=== PATIENT | female | born 1990 | race Caucasian/White ===

== ENCOUNTER 2023-07-09 12:54 | Emergency (ER) | payer MEDICAID, SELFPAY ==
[2023-07-09 13:02] VITALS: BP 143/90; PULSE 106; RESP 20; TEMP 36; O2SAT 100
--- NOTE | 2023-07-09 13:42 | ED.GENADULT ---
HPI - General Adult General Chief complaint: Upper Respiratory Infection Stated complaint: severe headache Time Seen by Provider: 07/09/23 13:42 Source: patient, RN notes reviewed and old records reviewed Mode of arrival: ambulatory Limitations: no limitations History of Present Illness HPI narrative: 32-year-old female presents to the [facility] with 4 day history of generalized neck pain radiating up into her head. States her headache has been getting worse. Has had intermittent blurry vision. Has taken ibuprofen. Patient describes it as 1 of the worst headaches of her life. States it feels like the headache she had after giving and having an epidural when she needed a blood patch. No neuro deficits noted. No generalized weakness. States she has had some clear nasal drainage and an intermittent cough. States that it hurts to swallow but denies any sore throat. Reports having chills. Pain with any movement of the head. Onset (ago): day(s) (4) Treatments prior to arrival: NSAID (Ibuprofen) Related Data Allergies Allergy/AdvReac Type Severity Reaction Status Date / Time amoxicillin Allergy Swelling Verified 07/09/23 13:44 doxycycline Allergy Swelling Verified 07/09/23 13:44 Penicillins Allergy Swelling Verified 07/09/23 13:44 sulfamethoxazole Allergy Hives Verified 07/09/23 13:44 [From Bactrim] trimethoprim [From Bactrim] Allergy Hives Verified 07/09/23 13:44 Review of Systems Review of Systems: All systems reviewed & are unremarkable except as noted in HPI and below Constitutional: Constitutional: Reports as per HPI, Reports body ache(s), Reports chills and Reports headache(s) Eyes: Eyes: Reports no additional eye complaints ENT: Reports as per HPI Cardiovascular: Cardiovascular: Reports no additional cardiovascular complaints, Denies chest pain and Denies dyspnea Respiratory: Respiratory: Reports as per HPI, Denies chest congestion, Reports cough and Denies dyspnea Gastrointestinal: Gastrointestinal: Reports no additional gastrointestinal complaints, Denies abdominal pain, Denies nausea and Denies vomiting Musculoskeletal: Musculoskeletal: Reports as per HPI and Denies numbness Integumentary/Breasts: Skin/Breast: Reports system reviewed and no additional complaints, except as docu Neurologic: Reports as per HPI and Reports headache(s) Psychiatric: Psychiatric: Reports no additional psychiatric complaints Allergic/Immunologic: Allergic/Immunologic: Reports no additional allergic/immunologic complaints PMFSH Past Medical History Medical History Hypertension Social History Social History (Updated 07/09/23 @ 14:27 by Zuly Kim APRN) Living arrangements: with family Gender identity (if verbalized by the patient): Female Comments At the time of my signature, I reviewed and agree with the nursing past medical, surgical, social, and family history. There is no relevant family history pertinent to the patient complaint. Exam Const: General: cooperative, well developed, alert, anxious, uncomfortable, well nourished and obese Nutritional Appearance: well nourished and obese Orientation/consciousness: patient oriented x3 Limitations: no limitations HENMT: Head: normal to inspection Ears: hearing grossly normal bilaterally, external ears normal, TM's normal bilaterally, EAC's normal, mastoids normal and no periauricular adenopathy Face/Nose/Sinus: Normal external nose present, Normal nares present, Normal nasal mucous membranes and turbinates present, normal facial exam and face symmetric Face and sinus: normal facial exam and face symmetric Mouth: Yes Normal oral and palatal mucosa present, Yes lip normal, Yes tongue normal and Yes moist mucous membranes Teeth and gingiva: caries and poor dentition (Multiple caries and missing teeth) Throat: posterior oropharynx normal, uvula midline and no uvular edema Eyes: General: appearance n
== END 2023-07-09 14:00 | disposition short-term general hospital (02) ==
PROVIDERS: Emergency Provider Nurse Practitioner
DX: M54.2 Cervicalgia (principal); R51.9 Headache, unspecified; Z20.822 Contact with and (suspected) exposure to COVID-19; I10 Essential (primary) hypertension
CPT/HCPCS: 87081; 87426; 87804; 87880; 99203; G0463

== ENCOUNTER 2023-08-26 22:04 | Emergency (ER) | payer OTHER, MEDICAID, SELFPAY ==
--- NOTE | ~2023-08-26 | XR_ITS ---
EXAMINATION: XR ribs RT 2V w CXR 2V Exam Date/Time: 08/26/2023 23:32 CDT HISTORY: right posterior rib pain Comparison: None available. RESULT: Lines, tubes, and devices: Mediastinal surgical clips. Lungs and pleura: Clear. Cardiothymic silhouette: Normal cardiothymic silhouette. 5.6 cm hemispherical soft tissue density ov er the right hemidiaphragm. Other: No upper abdominal finding. 2.8 cm gap in the right posterior seventh rib, with smooth sclero tic margins. No rib fracture detected. IMPRESSION: No acute cardiopulmonary process. No definite acute rib fracture detected. 2.8 cm gap in the right posterior seventh rib. The appearance is most likely related to chronic or po stsurgical/procedural change. 5.6 cm hemispherical soft tissue density over the right hemidiaphragm. Possible diaphragmatic hernia. Correlate with history prior trauma, surgical/procedural history, and consider CT of the chest for fu rther evaluation if no consistent history is revealed. Reviewed, dictated and finalized at location K. IMPRESSION: No acute cardiopulmonary process. No definite acute rib fracture detected. 2.8 cm gap in the right posterior seventh rib. The appearance is most likely re lated to chronic or postsurgical/procedural change. 5.6 cm hemispherical soft tissue density over the right hemidiaphragm. Possible diaphragmatic hernia. Correlate with history prior trauma, surgical/procedural history, and consider CT of the chest for further evaluation if no consistent history is revealed.
[2023-08-26 22:05] VITALS: BP 146/96; PULSE 103; RESP 16; TEMP 36.2; O2SAT 100
--- NOTE | 2023-08-26 23:25 | ED.BACK ---
HPI - Back Pain/Injury General Chief Complaint: Back Pain/Injury Stated Complaint: rt shoulder pain Time Seen by Provider: 08/26/23 22:48 Source: patient Mode of arrival: ambulatory Limitations: no limitations History of Present Illness HPI Narrative: This is a 32 year old female that presents to the ER for right sided mid back pain. Reports started after dropping off a package tonight. Pain is worse with movement and relieved with rest. She has not taken anything for pain. Denies weakness or numbness. Related Data Allergies Allergy/AdvReac Type Severity Reaction Status Date / Time amoxicillin Allergy Swelling Verified 07/09/23 13:44 doxycycline Allergy Swelling Verified 07/09/23 13:44 Penicillins Allergy Swelling Verified 07/09/23 13:44 sulfamethoxazole Allergy Hives Verified 07/09/23 13:44 [From Bactrim] trimethoprim [From Bactrim] Allergy Hives Verified 07/09/23 13:44 Review of Systems Review of Systems: CONSTITUTIONAL: Denies fever MUSCULOSKELETAL: Reports back pain, and myalgia. NEUROLOGIC: Denies numbness, or weakness. All systems reviewed & are unremarkable except as noted in HPI and below PMFSH Past Medical History Medical History Hypertension Social History Social History (Updated 07/09/23 @ 14:27 by Zuly Kim APRN) Living arrangements: with family Gender identity (if verbalized by the patient): Female Exam Narrative: GENERAL: Well-appearing, well-nourished, and in no acute distress. HEAD: Normocephalic, atraumatic. EYES: EOMI. CHEST: Clear to auscultation. No respiratory distress. No wheezes rales or rhonchi HEART: Regular rate and rhythm. No murmur heard. Normal peripheral pulses. BACK: Tender to palpation of right latissimus dorsi muscle EXTREMITIES: Normal range of motion. No edema. SKIN: Warm, dry, no rash. NEURO: No focal deficits. Alert and oriented x3. PSYCH: Normal mood and affect Course Course Emergency Course: Patient resting. Updated on her workup. Agrees with plan of care Vital Signs Vital signs: Vital Signs Temperature 97.1 F L 08/26/23 22:05 Pulse Rate 103 H 08/26/23 22:05 Respiratory Rate 16 08/26/23 22:05 Blood Pressure 146/96 H 08/26/23 22:05 Pulse Oximetry 100 08/26/23 22:05 Oxygen Delivery Room Air 08/26/23 22:05 Temperature 97.1 F L 08/26/23 22:05 Pulse Rate 91 08/27/23 00:17 Respiratory Rate 15 08/27/23 00:17 Blood Pressure 159/100 H 08/27/23 00:17 Pulse Oximetry 100 08/27/23 00:17 Oxygen Delivery Room Air 08/26/23 22:05 MDM - Back Pain/Injury MDM Narrative Medical decision making narrative: Patient presents to the emergency department after dropping off a package for work today feeling pain to the right back. Exam and symptoms consistent with likely muscle strain. Chest x-ray without acute cardiopulmonary abnormality. Patient has had a procedure on the right lung before, explaining other findings on her imaging. Patient resting. Updated on her workup. Agrees with plan of care. She was instructed on further care of muscle strain. She is to follow up with primary provider. She was given warnings to return to the ER Differential Diagnosis Differential diagnosis: Likely other (muscle strain, rib fracture) Imaging Data Radiologist's impression: ITS Impressions Ribs w/Chest X-Ray 08/27/23 00:00 IMPRESSION: No acute cardiopulmonary process. No definite acute rib fracture detected. 2.8 cm gap in the right posterior seventh rib. The appearance is most likely related to chronic or postsurgical/procedural change. 5.6 cm hemispherical soft tissue density over the right hemidiaphragm. Possible diaphragmatic hernia. Correlate with history prior trauma, surgical/procedural history, and consider CT of the chest for further evaluation if no consistent history is revealed. Critical Care Time Critical Care Time Critical C
[2023-08-26] MEDS: KETOROLAC 30 MG/ML VIAL (*BKC) IM (23:43)
[2023-08-26] MEDS: ACETAMINOPHEN 500 MG TABLET 1000 MG PO (23:43)
[2023-08-27 00:17] VITALS: BP 159/100; PULSE 91; RESP 15; O2SAT 100
== END 2023-08-27 01:23 | disposition home or self-care (01) ==
PROVIDERS: Emergency Provider Physician Assistant
DX: S29.012A Strain of muscle and tendon of back wall of thorax, initial encounter (principal); I10 Essential (primary) hypertension; X58.XXXA Exposure to other specified factors, initial encounter
CPT/HCPCS: 71046; 71100; 96372; 99283; A9270; J1885

== ENCOUNTER 2023-09-20 16:34 | Emergency (ER) | payer MEDICAID, SELFPAY ==
[2023-09-20 17:35] VITALS: BP 157/97; PULSE 86; RESP 20; TEMP 36.2; O2SAT 99
--- NOTE | 2023-09-20 17:36 | ED.RECABL ---
HPI - Recheck/Abnormal Lab/Rx General Chief Complaint: Recheck/Abnormal Lab/Rx Stated Complaint: requesting blood test Time Seen by Provider: 09/20/23 17:37 Focused HPI: this is a 32-year-old female that presents to the emergency department for a test. Reports she had a positive home test. Would like blood work to confirm. She does not currently have an OB. Her last menstrual period was 08/11/2023. denies pelvic cramping or vaginal bleeding. GENERAL: Well-appearing, well-nourished, and in no acute distress. HEAD: Normocephalic, atraumatic. CHEST: Clear to auscultation. ?No respiratory distress. HEART: Regular rate and rhythm.? NEURO: ?Alert and oriented x3. Patient screened in triage and initial orders placed.? ?Additional care and disposition to be based upon?diagnostic testing and treatment. Related Data Allergies Allergy/AdvReac Type Severity Reaction Status Date / Time amoxicillin Allergy Swelling Verified 09/20/23 17:38 doxycycline Allergy Swelling Verified 09/20/23 17:38 Penicillins Allergy Swelling Verified 09/20/23 17:38 sulfamethoxazole Allergy Hives Verified 09/20/23 17:38 [From Bactrim] trimethoprim [From Bactrim] Allergy Hives Verified 09/20/23 17:38 Review of Systems Review of Systems: CONSTITUTIONAL: Denies fever GASTROINTESTINAL: Denies abdominal pain All systems reviewed & are unremarkable except as noted in HPI and below PMFSH Past Medical History Medical History Hypertension Social History Social History (Updated 07/09/23 @ 14:27 by Zuly Kim APRN) Living arrangements: with family Gender identity (if verbalized by the patient): Female Exam Narrative: GENERAL: Well-appearing, well-nourished, and in no acute distress. HEAD: Normocephalic, atraumatic. EYES: EOMI. CHEST: No respiratory distress. HEART: Regular rate EXTREMITIES: Normal range of motion. No edema. SKIN: Warm, dry, no rash. NEURO: No focal deficits. Alert and oriented x3. PSYCH: Normal mood and affect Course Course Emergency Course: patient updated on her workup Vital Signs Vital signs: Vital Signs Temperature 97.1 F L 09/20/23 17:35 Pulse Rate 86 09/20/23 17:35 Respiratory Rate 20 09/20/23 17:35 Blood Pressure 157/97 H 09/20/23 17:35 Pulse Oximetry 99 09/20/23 17:35 Oxygen Delivery Room Air 09/20/23 17:35 Temperature 98.0 F 09/20/23 21:10 Pulse Rate 86 09/20/23 21:10 Respiratory Rate 20 09/20/23 21:10 Blood Pressure 150/94 H 09/20/23 21:10 Pulse Oximetry 95 09/20/23 21:10 Oxygen Delivery Room Air 09/20/23 17:35 MDM - Recheck/Abnormal Lab/Rx MDM Narrative Medical decision making narrative: patient presents to the emergency department for test. No other concerns or complaints. test was negative. Instructed to follow-up with PCP as needed Lab Data Attestation: I reviewed the patient's lab results. Labs: Lab Results 09/20/23 Range/Units 20:18 Beta HCG, Quant < 2.39 mIU/ML Critical Care Time Critical Care Time Critical Care Time: No Discharge Plan Discharge Clinical Impression: Negative test Patient Disposition: Home, Self-Care Condition: Stable Additional Instructions: Return to the emergency department if you experience fever, chest pain, shortness of breath, abdominal pain with nausea and vomiting, weakness, numbness, or any other symptoms that are concerning to you. Follow up with primary care doctor as needed Prescriptions: No Action cyclobenzaprine 10 mg tablet 10 mg PO TID PRN (Reason: muscle spasm) Qty: 14 0RF Follow-up/Referrals: PHYSICIAN,MEDICAL INFORMATION SPECIALIST [Primary Care Provider] -
[2023-09-20 19:23] VITALS: BP 154/100; PULSE 89; RESP 20; TEMP 37; O2SAT 98
[2023-09-20 21:10] VITALS: BP 150/94; PULSE 86; RESP 20; TEMP 36.7; O2SAT 95
[2023-09-20 21:20] LABS: Beta HCG Quantitative < 2.39 mIU/ML
== END 2023-09-20 21:30 | disposition home or self-care (01) ==
PROVIDERS: Emergency Provider Physician Assistant
DX: Z32.02 Encounter for pregnancy test, result negative (principal); I10 Essential (primary) hypertension
CPT/HCPCS: 36415; 84702; 99283

== ENCOUNTER 2024-01-22 03:16 | Emergency (ER) | payer SELFPAY ==
[2024-01-22 03:21] VITALS: PULSE 88; RESP 15; TEMP 36.5; O2SAT 99
--- NOTE | 2024-01-22 03:25 | ED.GENADULT ---
HPI - General Adult General Chief complaint: Dental/Oral Stated complaint: R sided toothache Time Seen by Provider: 01/22/24 03:21 History of Present Illness HPI narrative: Patient is a 33-year-old female who presents emergency department with chief complaint of dental pain. Patient reports that she started having pain in her right upper tooth reports that she does not seen a dentist yet and reports that she is not having any fever trismus. Related Data Allergies Allergy/AdvReac Type Severity Reaction Status Date / Time amoxicillin Allergy Swelling Verified 01/22/24 03:17 doxycycline Allergy Swelling Verified 01/22/24 03:17 Penicillins Allergy Swelling Verified 01/22/24 03:17 sulfamethoxazole Allergy Hives Verified 01/22/24 03:17 [From Bactrim] trimethoprim [From Bactrim] Allergy Hives Verified 01/22/24 03:17 Review of Systems Review of Systems: A 10 system review of systems was completed on the patient and is negative except for what is stated in the HPI. Nursing and ancillary documentation was reviewed. PMFSH Past Medical History Medical History Hypertension Social History Social History Living arrangements: with family Gender identity (if verbalized by the patient): Female Exam Narrative: GENERAL: Well-appearing, well-nourished, and in no acute distress. HEAD: Normocephalic, atraumatic. EYES: PERRLA and EOMI. ENT: Nares clear, no rhinorrhea or epistaxis. Mucous membranes moist. Gross dental decay present no trismus no crepitance NECK: Supple. CHEST: Clear to auscultation. No respiratory distress. HEART: Regular rate and rhythm. No murmur heard. Normal peripheral pulses. ABDOMEN: Soft, nontender, nondistended, normal active bowel sounds. EXTREMITIES: Normal range of motion. No edema. SKIN: Warm, dry, no rash. NEURO: No focal deficits. Alert and oriented x3. PSYCH: Normal mood and affect. Medical Decision Making MDM Narrative Medical decision making narrative: Differential diagnosis dental caries, dental abscess Patient be started on clindamycin as she is allergic to amoxicillin doxycycline sulfa Patient will be given a dose of [place] in the emergency depart Discharge Plan Discharge Clinical Impression: Dental caries, Toothache Patient Disposition: Home, Self-Care Condition: Stable Instructions: Antibiotic Form, Dental Abscess (ED), Toothache (ED) Additional Instructions: Please follow-up with a dentist as soon as possible Prescriptions: New clindamycin HCl 300 mg capsule 300 mg PO Q6H 10 Days Qty: 40 0RF No Action cyclobenzaprine 10 mg tablet 10 mg PO TID PRN (Reason: muscle spasm) Qty: 14 0RF Follow-up/Referrals: PHYSICIAN,LAUNDRY PRICING CLERK [Primary Care Provider] - Mabel De Los Santos DO [Physician] - Time of Disposition: 03:30
[2024-01-22] MEDS: HYDROcodone/acetaminophen (*CRX) 5-325 MG TABLET 1 TAB PO (03:32)
[2024-01-22] MEDS: CLINDAMYCIN HCL 150 MG CAP 300 MG PO (03:32)
[2024-01-22 03:46] VITALS: BP 130/83; PULSE 84; RESP 15; O2SAT 99
== END 2024-01-22 03:44 | disposition home or self-care (01) ==
LOC: ANHED 03:35
PROVIDERS: Emergency Provider Emergency Medicine
DX: K02.9 Dental caries, unspecified (principal); I10 Essential (primary) hypertension
CPT/HCPCS: 99283; A9270

== ENCOUNTER 2024-03-30 10:22 | Emergency (ER) | payer BC, SELFPAY ==
--- NOTE | 2024-03-30 12:13 | ED.URI ---
HPI - URI/Sore Throat General Chief Complaint: Upper Respiratory Infection Stated Complaint: fever,bodyaches.cough Time Seen by Provider: 03/30/24 12:13 Source: patient, RN notes reviewed and old records reviewed Mode of arrival: ambulatory Limitations: no limitations History of Present Illness HPI Narrative: Patient presents with complaints of flu-like symptoms that began yesterday. She is accompanied by her child who is also experiencing the same symptoms. She reports that she has been taking Tylenol and ibuprofen for her symptoms with moderate relief. She denies any injury or trauma. She is not in any distress. She voices no other concerns or complaints today. Related Data Allergies Allergy/AdvReac Type Severity Reaction Status Date / Time amoxicillin Allergy Swelling Verified 03/30/24 12:04 doxycycline Allergy Swelling Verified 03/30/24 12:04 Penicillins Allergy Swelling Verified 03/30/24 12:04 sulfamethoxazole (From Allergy Hives Verified 03/30/24 12:04 Bactrim) trimethoprim (From Bactrim) Allergy Hives Verified 03/30/24 12:04 Review of Systems Review of Systems: All systems reviewed & are unremarkable except as noted in HPI and below Constitutional: Constitutional: Reports no additional constitutional complaints, Reports body ache(s), Reports chills, Reports fever(s), Reports headache(s) and Reports lethargy ENT: Reports system reviewed and no additional complaints, except as documented, Reports nasal congestion and Reports nasal discharge Cardiovascular: Cardiovascular: Reports no additional cardiovascular complaints Respiratory: Respiratory: Reports no additional respiratory complaints Gastrointestinal: Gastrointestinal: Reports no additional gastrointestinal complaints PMF Past Medical History Medical History Hypertension Social History Social History Living arrangements: with family Gender identity (if verbalized by the patient): Female Comments At the time of my signature, I reviewed and agree with the nursing past medical, surgical, social, and family history. There is no relevant family history pertinent to the patient complaint. Exam Const: General: cooperative, no acute distress, alert and awake Orientation/consciousness: oriented to person, oriented to place and oriented to time HENMT: Head: normal to inspection Ears: TM's normal bilaterally Mouth: Yes moist mucous membranes Throat: posterior oropharynx normal Resp: Effort & Inspection: normal respiratory effort and able to speak in complete sentences Auscultation: clear to auscultation bilaterally, no crackles, no rales, no rhonchi and no wheezes Cardio: Palpation: normal PMI Rate: regular rate Rhythm: regular rhythm Heart sounds: S1 normal heart sound present and S2 normal heart sound present Neuro: General: oriented to person, oriented to place and oriented to time Cranial nerves: Yes CN's II-XII intact bilaterally Psych: Appearance: grossly normal Thought process: Normal thought process present Insight: Good insight present (Psych) Judgement: Good judgement present (Psych) Course Course Level of Care: Express Care Visit Vital Signs Vital signs: Reviewed MDM - URI/Sore Throat Differential Diagnosis Differential diagnosis: Likely upper respiratory infection, otitis media, viral infection and influenza Medical Records Attestation: I reviewed the patient's medical records. Lab Data Attestation: I reviewed the patient's lab results. Labs: Lab Results 03/30/24 03/30/24 Range/Units 12:20 12:21 POC Influenza A Ag Positive (Negative) POC Influenza B Ag Negative (Negative) POC SARS CoV-2 Ag Negative (Negative) Discharge Plan Discharge Clinical Impression: Influenza Patient Disposition: Home, Self-Care Condition: Stable Instructions: Antibiotic Form, Influenza (ED) Additional Instructions: Use [id number] medications to manage symptoms. Follow package instructions. Follow-up with primary care provider. Emergency department for new or worse symptoms Patient Language: Persian Prescriptions: No Action clindamycin HCl 300 mg capsule 300 mg PO Q6H 10 Days Qty: 40 0RF cyclobenzaprine 10 mg tablet 10 mg PO TID PRN (Reason: muscle spasm) Qty: 14 0RF Follow-up/Referrals: PHYSICIAN,KEY ACCOUNT REPRESENTATIVE [Primary Care Provider] - Stand Alone Forms: Work/School Release IP Time of Disposition: 12:42
[2024-03-30 12:23] LABS: EDCOVIDSCREEN Negative (Negative)
[2024-03-30 12:23] LABS: EDINFLUASCREEN Positive (Negative); EDINFLUBSCREEN Negative (Negative)
== END 2024-03-30 12:54 | disposition home or self-care (01) ==
PROVIDERS: Emergency Provider Nurse Practitioner Family
DX: J10.1 Influenza due to other identified influenza virus with other respiratory manifestations (principal); Z20.822 Contact with and (suspected) exposure to COVID-19; I10 Essential (primary) hypertension
CPT/HCPCS: 87426; 87804; 99212; G0463